=== PATIENT | female | born 1980 ===

== ENCOUNTER 2022-02-12 13:07 | Outpatient (CLI) | payer OTHER ==
[~2022-02-12 13:07] MED LIST: PRENATAL CAPLE1 EACH PO
== END 2022-02-12 14:25 | disposition home or self-care (01) ==
LOC: PRENATAL 13:07
PROVIDERS: ATTEND Obstetrics & Gynecology Maternal & Fetal Medicine
DX: O36.80X0 Pregnancy with inconclusive fetal viability, not applicable or unspecified (principal); O09.529 Supervision of elderly multigravida, unspecified trimester; Z36.0 Encounter for antenatal screening for chromosomal anomalies; Z3A.13 13 weeks gestation of pregnancy

== ENCOUNTER 2022-04-08 12:44 | Outpatient (CLI) | payer OTHER | END 2022-04-08 14:25 | disposition home or self-care (01) | LOC: PRENATAL 12:44 | PROVIDERS: ATTEND Obstetrics & Gynecology Maternal & Fetal Medicine | DX: O35.9XX0 Maternal care for (suspected) fetal abnormality and damage, unspecified, not applicable or unspecified (principal); O35.3XX0 Maternal care for (suspected) damage to fetus from viral disease in mother, not applicable or unspecified; Z3A.21 21 weeks gestation of pregnancy ==